=== PATIENT | male | born 1990 | race Caucasian/White ===

== ENCOUNTER 2016-11-01 21:05 | Emergency (ER) | payer BC ==
[~2016-11-01] VITALS: Ht 175.3 cm; Wt 86.4 kg
[~2016-11-01 21:05] MED LIST: CEPHALEXIN500 M1 PO; NO HOME MEDICATIONS
[2016-11-01 21:13] VITALS: TEMP 98.6
[2016-11-01 22:52] VITALS: BP 124/96
[2016-11-01 23:03] LABS: BASO % 0.4 % (0.0-2.0); EOS # 0.1 (0.0-0.7); EOS % 1.7 % (0-4.0); GRAN # 3.6 (1.4-6.5); GRAN % 48.2 % (42.2-75.2); HEMOGLOBIN 14.9 g/dl (13.5-18.0); LYMPH # 3.3 (1.2-3.4); LYMPH % 44.4 % (20.0-51.0); MEAN CELL VOLUME 94 fl (80.0-100.0); MEAN CORPUSCULAR HEMOGLOBIN 34 pg (27.0-31.0); MEAN CORPUSCULAR HGB CONC 36 g/dl (33.0-37.0); MONO # 0.4 (0.1-0.6); MONO % 5.2 % (1.7-9.3); PLATELET COUNT 209 K/mm3 (130-400); RED BLOOD COUNT 4.38 M/mm3 (4.20-5.60); REDCELL DISTRIBUTION WIDTH-CV 11.1 % (11.5-14.5); WHITE BLOOD COUNT 7.5 K/mm3 (4.8-10.8)
[2016-11-01 23:14] LABS: CALCIUM 8.8 mg/dL (8.4-10.2); CREATININE, serum 0.8 mg/dL (0.66-1.25); POTASSIUM 3.9 mmol/L (3.4-5.0)
[2016-11-01 23:42] VITALS: PULSE 93
== END 2016-11-01 23:46 | disposition home or self-care (01) ==
LOC: COL.ER 21:05
PROVIDERS: Emergency Medicine
DX: R10.31 Right lower quadrant pain (principal); R10.32 Left lower quadrant pain; K62.5 Hemorrhage of anus and rectum; G89.29 Other chronic pain

== ENCOUNTER 2016-11-30 02:03 | Inpatient (IN) | payer BC ==
[2016-11-30] VITALS (841 sets, daily range): BP systolic 119–146; BP diastolic 88–96; PULSE 105–131; TEMP 97.4–99.2; O2SAT 93–100
[~2016-11-30] VITALS: Ht 175.3 cm; Wt 90.7 kg
[2016-11-30 02:44] LABS: HEMATOCRIT 48.6 % (42.0-52.0); HEMOGLOBIN 17.3 g/dl (13.5-18.0); MEAN CELL VOLUME 96 fl (80.0-100.0); MEAN CORPUSCULAR HEMOGLOBIN 34 pg (27.0-31.0); MEAN CORPUSCULAR HGB CONC 36 g/dl (33.0-37.0); MEAN PLATELET VOLUME 8.8 fl (7.4-10.4); PLATELET COUNT 376 K/mm3 (130-400); RED BLOOD COUNT 5.07 M/mm3 (4.20-5.60); REDCELL DISTRIBUTION WIDTH-CV 11.7 % (11.5-14.5)
[2016-11-30 02:47] LABS: ADD PATHOLOGY DIFF REVIEW NO; WHITE BLOOD COUNT 34.1 K/mm3 (4.8-10.8)
[2016-11-30 02:57] LABS: ADJUSTED CALCIUM 8.1 mg/dL (8.4-10.2); ALBUMIN 5.3 gm/dL (3.5-5.0); BILIRUBIN,TOTAL 1.8 mg/dL (0.0-1.0); CALCIUM 9.1 mg/dL (8.4-10.2); CREATININE, serum 1.16 mg/dL (0.66-1.25); POTASSIUM 4.9 mmol/L (3.4-5.0); TOTAL PROTEIN 9.1 gm/dL (6.4-8.2)
[2016-11-30 03:04] LABS: BAND 11 % (0-10); NEUTROPHILS 78 % (42.0-75.2); TOTAL CELLS COUNTED 100
[2016-11-30 03:17] LABS: PH 5 (5-8); SQUAMOUS EPITHELIAL None Seen /hpf; URINE APPEARANCE Clear; URINE BACTERIA None Seen /hpf; URINE BILIRUBIN Negative (NEGATIVE); URINE BLOOD 1+ (NEGATIVE); URINE COLOR Yellow; URINE GLUCOSE Negative (NEGATIVE); URINE KETONE 2+ (NEGATIVE); URINE UROBILINOGEN Negative (NEGATIVE); URINE WBC 0-2 /hpf
[2016-11-30 05:02] LABS: CALCIUM 7.8 mg/dL (8.4-10.2); CREATININE, serum 0.94 mg/dL (0.66-1.25); POTASSIUM 5.5 mmol/L (3.4-5.0)
[2016-11-30 05:05] LABS: AMPHETAMINE URINE NEGATIVE; BARBITURATES URINE NEGATIVE; BENZODIAZEPINES URINE NEGATIVE; BUPRENORPHINE URINE NEGATIVE; METHADONE URINE NEGATIVE; OPIATES URINE NEGATIVE; OXYCODONE URINE NEGATIVE; PHENCYCLIDINE URINE NEGATIVE; PROPOXYPHENE URINE NEGATIVE; THC CANNABINOIDS URINE NEGATIVE
[2016-11-30 05:18] LABS: ARTERIAL BLD GAS O2 SATURATION 96.5 % (92-100); ARTERIAL BLD GAS TCO2 CT 12.4; ARTERIAL BLOOD GAS BASE EXCESS -13.6 (-2-2); ARTERIAL BLOOD GAS HCO3 11.5 meq/L (22-26); ARTERIAL BLOOD GAS PHT 7.26 C (7.35-7.45); ARTERIAL BLOOD GAS PO2 98.9 mmHg (80-100); ARTERIAL BLOOD GAS PO2T 98.9 (80-100); ARTERIAL BLOOD GAS pH 7.26 (7.35-7.45); OXYHEMOGLOBIN 95.7 %
[2016-11-30 05:19] LABS: ALLEN TEST YES; ALLENS TEST RESULT PASS; ATS? YES
[2016-11-30 18:07] LABS: CALCIUM 7.8 mg/dL (8.4-10.2); CREATININE, serum 0.82 mg/dL (0.66-1.25); POTASSIUM 3.8 mmol/L (3.4-5.0)
[2016-12-01] VITALS (8 sets, daily range): BP systolic 121–148; BP diastolic 72–99; PULSE 96–119; TEMP 97.7–98.7
[2016-12-01 07:10] LABS: BASO % 0.1 % (0.0-2.0); EOS % 0.3 % (0-4.0); GRAN # 5.5 (1.4-6.5); GRAN % 70.4 % (42.2-75.2); LYMPH # 1.8 (1.2-3.4); LYMPH % 22.9 % (20.0-51.0); MEAN CELL VOLUME 95 fl (80.0-100.0); MEAN CORPUSCULAR HGB CONC 36 g/dl (33.0-37.0); MEAN PLATELET VOLUME 8.8 fl (7.4-10.4); MONO # 0.5 (0.1-0.6); RED BLOOD COUNT 3.81 M/mm3 (4.20-5.60); REDCELL DISTRIBUTION WIDTH-CV 11.5 % (11.5-14.5); WHITE BLOOD COUNT 7.8 K/mm3 (4.8-10.8)
[2016-12-01 07:17] LABS: HEMATOCRIT 36.1 % (42.0-52.0); HEMOGLOBIN 12.8 g/dl (13.5-18.0); MEAN CORPUSCULAR HEMOGLOBIN 34 pg (27.0-31.0); PLATELET COUNT 173 K/mm3 (130-400)
[2016-12-01 07:23] LABS: CALCIUM 7.9 mg/dL (8.4-10.2); CREATININE, serum 0.78 mg/dL (0.66-1.25); POTASSIUM 3.4 mmol/L (3.4-5.0)
[2016-12-01] MEDS ORDERED: PROTONIX 40MG T40 MG PO (10:43)
== END 2016-12-01 16:40 | disposition home or self-care (01) | DRG 897 ==
LOC: COL.ER 02:03 → ICU 04:22 → EDBEDREQ 04:37 → ICU 21:17 → SURG 23:15
PROVIDERS: Emergency Medicine; Family Medicine
DX: F10.129 Alcohol abuse with intoxication, unspecified (principal); E87.2 Acidosis; Z87.891 Personal history of nicotine dependence
CPT/HCPCS: 99222-AI; 99232-AI; 99239; C9113; J1170; J2060; J2405; J3411; J7030; J7042; Q9967

== ENCOUNTER 2017-02-02 11:33 | Day surgery (SDC) | payer BC ==
[~2017-02-02] VITALS: Ht 175.3 cm; Wt 92.0 kg
[~2017-02-02 11:33] MED LIST changes: +PROTONIX 40MG T40 MG PO
[2017-02-02] MEDS ORDERED: BENTYL 10MG10 MG/CAP PO (11:43)
[2017-02-02] MEDS ORDERED: XANAX .25M0.25 MG/TA PO (11:44)
[2017-02-02 12:10] VITALS: BP 134/97; PULSE 75; TEMP 98.3
[2017-02-02 13:40] VITALS: BP 133/96; PULSE 79; TEMP 97.9
[2017-02-02 13:55] VITALS: BP 126/97; PULSE 74
[2017-02-02 14:48] VITALS: BP 119/85; PULSE 73
== END 2017-02-02 14:33 | disposition home or self-care (01) ==
LOC: SDCO 11:33
DX: K64.0 First degree hemorrhoids (principal); R10.84 Generalized abdominal pain; R19.4 Change in bowel habit; R19.7 Diarrhea, unspecified; R63.0 Anorexia; Z68.30 Body mass index [BMI] 30.0-30.9, adult; F17.210 Nicotine dependence, cigarettes, uncomplicated; R06.83 Snoring; K29.30 Chronic superficial gastritis without bleeding; R12 Heartburn
CPT/HCPCS: OP; J2250; J2704; J3010; J7030

== ENCOUNTER 2020-12-01 23:01 | Observation (INO) | payer OTHER ==
[~2020-12-01] VITALS: Ht 177.8 cm; Wt 88.6 kg
[~2020-12-01 23:01] MED LIST changes: +BENTYL 10MG10 MG/CAP PO; +XANAX .25M0.25 MG/TA PO
[2020-12-01] MEDS ORDERED: SYNTHROID0.175 MG PO (23:32)
[2020-12-02] VITALS (10 sets, daily range): BP systolic 115–134; BP diastolic 69–84; PULSE 75–89; TEMP 98–98.5
[2020-12-02 00:32] LABS: BASO % 0.3 % (0.0-2.0); EOS # 0.1 (0.0-0.7); EOS % 0.8 % (0-4.0); GRAN % 77.8 % (42.2-75.2); HEMATOCRIT 41.3 % (42.0-52.0); HEMOGLOBIN 14.8 g/dl (13.5-18.0); LYMPH # 1.8 (1.2-3.4); LYMPH % 14.2 % (20.0-51.0); MEAN CELL VOLUME 91 fl (80.0-100.0); MEAN CORPUSCULAR HEMOGLOBIN 33 pg (27.0-31.0); MEAN CORPUSCULAR HGB CONC 36 g/dl (33.0-37.0); MEAN PLATELET VOLUME 9.9 fl (7.4-10.4); MONO # 0.8 (0.1-0.6); MONO % 6.5 % (1.7-9.3); PLATELET COUNT 232 K/mm3 (130-400); RED BLOOD COUNT 4.53 M/mm3 (4.20-5.60); REDCELL DISTRIBUTION WIDTH-CV 11.1 % (11.5-14.5)
[2020-12-02 00:51] LABS: ALBUMIN 4.1 gm/dL (3.5-5.0); CALCIUM 9.1 mg/dL (8.4-10.2); CREATININE, serum 0.91 (0.66-1.25); POTASSIUM 3.3 mmol/L (3.4-5.0); TOTAL PROTEIN 7.1 gm/dL (6.4-8.2)
[2020-12-02 01:54] LABS: COLLECTION METHOD CLEAN CATCH
[2020-12-02 02:03] LABS: MUCOUS Present /lpf; PH 5 (5-8); SQUAMOUS EPITHELIAL None Seen /hpf; URINE APPEARANCE Clear; URINE BACTERIA Rare /hpf; URINE BILIRUBIN Negative (NEGATIVE); URINE BLOOD Negative (NEGATIVE); URINE COLOR Yellow; URINE GLUCOSE Negative (NEGATIVE); URINE KETONE 1+ (NEGATIVE); URINE LEUKOCYTE ESTERASE Negative (NEGATIVE); URINE NITRATE Negative (NEGATIVE); URINE PROTEIN(semi-quant) Negative (NEGATIVE); URINE RBC 0-2 /hpf; URINE UROBILINOGEN Negative (NEGATIVE)
--- NOTE | 2020-12-02 02:43 | NUR ---
RECEIVED REPORT FROM ED [facility]. WAITING FOR PATIENT ARRIVAL TO SURIGAL UNIT.
--- NOTE | 2020-12-02 03:16 | NUR ---
PATIENT ARRIVED/ADMITTED TO ROOM 343 VIA ED CART/WITH ED NURSE PRESENT. IVF IN PLACE AND INFUSING WITH NO PROBLEMS. REPORTS PAIN LEVEL 3/10 AT REST THAT INCREASED WITH MOVEMENT TO 7/10.
--- NOTE | 2020-12-02 07:03 | NUR ---
CHANGE OF SHIFT REPORT GIVEN TO DAY SHIFT NURSE, DANGELO BAXTER.
--- NOTE | 2020-12-02 10:53 | NUR ---
Patient alert and oriented, answers questions appropriately. See assessment. Abdomen soft, non tender, non distended. Bowel sounds active x4 quads. +Flatus. Consent for lap appy per Dr Rousseau signed. No c/o at this time.
--- NOTE | 2020-12-02 15:30 | NUR ---
Patient returns from surgery at 1530. Assessment unchanged except for abdomen with lap sites x3, covered with bandaid. Bowel sounds hypoactive x3 quads. No flatus. No c/o pain at this time.
[2020-12-02] MEDS ORDERED: NORCO 325 MG-51 TAB PO (17:48)
--- NOTE | 2020-12-02 18:45 | NUR ---
Discharge instructions reviewed with patient, verbalized understanding. Discharged ambulatory to auto/home with friend at 1830.
== END 2020-12-02 18:30 | disposition home or self-care (01) ==
LOC: COL.ER 23:01 → SURG 12-02 02:01 → EDBEDREQTM 12-02 02:12 → SURG 12-02 18:30
PROVIDERS: Emergency Medicine; ADMIT Surgery
DX: K35.80 Unspecified acute appendicitis (principal); E03.9 Hypothyroidism, unspecified; E87.2 Acidosis; Z79.890 Hormone replacement therapy; F17.210 Nicotine dependence, cigarettes, uncomplicated; Z79.899 Other long term (current) drug therapy
CPT/HCPCS: G0378; J0330; J0690; J1100; J1885; J2060; J2270; J2310; J2405; J2543; J2704; J3010; J7030; Q9967